=== PATIENT | female | born 1935 | race Caucasian/White ===

== ENCOUNTER 2018-11-01 19:18 | Inpatient (IN) | payer MEDICARE, OTHER ==
[~2018-11-01] VITALS: Ht 156.2 cm; Wt 55.8 kg
[~2018-11-01 19:18] MED LIST: ALPR0.25 PO; ASPI81TA50 PO; BUME1TAB21 PO; CARV6.2512 PO; FAMO1TAB3 PO; FURO-93 PO; LOPE2TAB12 PO; LORA10CA PO; LOSA25TA2 PO; OMEP20CA14 PO; ONDA4TAB10 PO; POTA10TA57 PO; POTA15TA9 PO; SPIR25TA5 PO
--- NOTE | 2018-11-01 19:28 | NUR ---
PT BIBA FOR SOB. PT HAS A HX OF CHF. PT WAS DISCHARDGED ON YESTERDAY FROM [facility] FOR THE SAME. PT HAS 4+ PITTING PEDAL EDEMA. PT ON CONT. MONITORS, VSS
[2018-11-01] MEDS ORDERED: SODIUM CHLORIDE FLUSH 10ML SYR IVF ONE (20:00)
[2018-11-01 20:18] LABS: BASOPHILS # (AUTO) 0.01 x10^3/uL (0-0.1); BASOPHILS % (AUTO) 0 % (0-1); EOSINOPHILS % (AUTO) 0 % (1-7); LYMPHOCYTES # (AUTO) 0.62 x10^3/uL (1-3.4); LYMPHOCYTES % (AUTO) 18 % (22-44); MD NO; MEAN CORPUSCULAR HEMOGLOBIN 33.1 pg (27.0-34.8); MEAN CORPUSCULAR HGB CONC 33.1 g/dL (32.4-35.8); MEAN CORPUSCULAR VOLUME 100.2 fL (80-100); MEAN PLATELET VOLUME 8.9 fL (7.4-10.4); MONOCYTES # (AUTO) 0.48 x10^3/uL (0.2-0.8); MONOCYTES % (AUTO) 14 % (2-9); NEUTROPHILS # (AUTO) 2.28 x10^3/uL (1.8-6.8); NEUTROPHILS % (AUTO) 67 % (42-75); PLATELET COUNT 163 x10^3/uL (130-400); RED BLOOD COUNT 3.75 x10^6/uL (3.82-5.3)
[2018-11-01 20:21] LABS: ALBUMIN 3.6 g/dL (3.4-5.0); ANION GAP 8 mmol/L (5-15); CALCIUM 8.5 mg/dL (8.5-10.1); CHLORIDE 101 mmol/L (98-107); CREATININE 1.16 mg/dL (0.55-1.02)
[2018-11-01 20:25] LABS: TROPONIN I 0.026 ng/mL (0.000-0.045)
--- NOTE | 2018-11-01 20:31 | NUR ---
RECEIVED REPORT FROM JUNE OLIVARES. PT RESTING IN BED AT THIS TIME, FAMILY AT BEDSIDE.
--- NOTE | 2018-11-01 20:55 | NUR ---
PT UP FOR RECHECK. ALL RESULTS BACK.
[2018-11-01] MEDS ORDERED: FUROSEMIDE 40 MG/4 ML IVPush ONE (21:30)
[2018-11-01] MEDS ORDERED: FUROSEMIDE 40 MG/4 ML ONE (21:44)
--- NOTE | 2018-11-01 21:53 | NUR ---
REPORT TO JEWEL OLIVARES
[2018-11-01] MEDS ORDERED: AZIT500T2 PO (22:05)
[2018-11-01] MEDS ORDERED: POLYETHYLENE GLYCOL 17 GM PACKET PO PRN (22:30)
[2018-11-01] MEDS ORDERED: hydrALAzine 20 MG/ML, 1ML IVPush PRN (22:30)
[2018-11-01] MEDS ORDERED: GUAIFENESIN/DM 200-20MG, 10ML UDC PO PRN (22:30)
[2018-11-01] MEDS ORDERED: ONDANSETRON 2MG/ML, 2ML IVPush PRN (22:30)
[2018-11-01 22:33] VITALS: BP 137/77
[2018-11-01] MEDS: CARVEDILOL 6.25 MG TABLET PO SCH (23:25)
[2018-11-02] MEDS ORDERED: ALBUTEROL SULFATE 2.5 MG/3 ML NPPB SCH (00:30)
[2018-11-02 01:59] VITALS: BP 130/86
[2018-11-02] MEDS: ALBUTEROL SULFATE 2.5 MG/3 ML NPPB SCH ×4 (02:20→21:27)
[2018-11-02 05:11] VITALS: BP 136/82
[2018-11-02] MEDS: CARVEDILOL 6.25 MG TABLET PO SCH ×2 (05:13→17:34)
[2018-11-02] MEDS: ASPIRIN 81 MG TABLET EC PO SCH (05:13)
[2018-11-02 06:13] LABS: BASOPHILS % (AUTO) 0 % (0-1); EOSINOPHILS % (AUTO) 0 % (1-7); LYMPHOCYTES # (AUTO) 0.77 x10^3/uL (1-3.4); LYMPHOCYTES % (AUTO) 24 % (22-44); MD NO; MEAN CORPUSCULAR HEMOGLOBIN 32.7 pg (27.0-34.8); MEAN CORPUSCULAR HGB CONC 32.8 g/dL (32.4-35.8); MEAN CORPUSCULAR VOLUME 99.5 fL (80-100); MEAN PLATELET VOLUME 8.9 fL (7.4-10.4); MONOCYTES # (AUTO) 0.49 x10^3/uL (0.2-0.8); MONOCYTES % (AUTO) 16 % (2-9); NEUTROPHILS # (AUTO) 1.89 x10^3/uL (1.8-6.8); NEUTROPHILS % (AUTO) 60 % (42-75); PLATELET COUNT 144 x10^3/uL (130-400); RED BLOOD COUNT 3.71 x10^6/uL (3.82-5.3); RED CELL DISTRIBUTION WIDTH 16.7 % (9.6-15.2)
[2018-11-02 06:20] LABS: ANION GAP 6 mmol/L (5-15); CALCIUM 8.2 mg/dL (8.5-10.1); CHLORIDE 100 mmol/L (98-107)
[2018-11-02 07:51] VITALS: BP 132/70
[2018-11-02] MEDS: ENOXAPARIN 30 MG/0.3 ML SQ SCH (09:00)
[2018-11-02] MEDS: LORATADINE 10 MG TABLET PO SCH (09:00)
[2018-11-02] MEDS: FUROSEMIDE 40 MG/4 ML IV SCH ×2 (09:22→17:32)
[2018-11-02] MEDS: SODIUM CHLORIDE FLUSH 10ML SYR IVF SCH ×3 (09:23→21:00)
[2018-11-02] MEDS: POTASSIUM CHLORIDE 20 MEQ TAB.ER.PRT PO SCH (09:33)
[2018-11-02 09:37] LABS: MICROSCOPIC AUTO
[2018-11-02 09:39] LABS: CULTURE INDICATED? NO
[2018-11-02] MEDS: ACETAMINOPHEN 325 MG TABLET PO PRN ×2 (09:39→20:59)
[2018-11-02 12:44] VITALS: BP 102/63
[2018-11-02 13:18] LABS: CLOSTRIDIUM DIFFICILE ANTIGEN NEGATIVE; CLOSTRIDIUM DIFFICILE TOXIN NEGATIVE (Negative)
[2018-11-02] MEDS ORDERED: DEXTROSE 50%, 50ML SYRINGE IVPush PRN (14:30)
[2018-11-02] MEDS ORDERED: DEXTROSE 4 GM TAB.CHEW PO PRN (14:30)
[2018-11-02] MEDS ORDERED: GLUCAGON 1 MG IM PRN (14:30)
[2018-11-02] MEDS: LOPERAMIDE 2 MG CAPSULE PO PRN (14:35)
[2018-11-02] MEDS: HEMORRHOIDAL OINT, 28 GM (PREP H) RC PRN (14:37)
[2018-11-02 17:34] VITALS: BP 117/73
[2018-11-02 18:53] VITALS: BP 123/78
[2018-11-03 00:30] VITALS: BP 129/80
[2018-11-03] MEDS: ALBUTEROL SULFATE 2.5 MG/3 ML NPPB SCH ×4 (03:00→19:00)
[2018-11-03 05:33] LABS: CHLORIDE 100 mmol/L (98-107)
[2018-11-03 05:39] LABS: ANION GAP 6 mmol/L (5-15); CREATININE 1.13 mg/dL (0.55-1.02)
[2018-11-03] MEDS: ASPIRIN 81 MG TABLET EC PO SCH (05:42)
[2018-11-03] MEDS: CARVEDILOL 6.25 MG TABLET PO SCH ×2 (05:42→17:48)
[2018-11-03 05:50] LABS: MEAN CORPUSCULAR HEMOGLOBIN 33.8 pg (27.0-34.8); MEAN CORPUSCULAR HGB CONC 34.2 g/dL (32.4-35.8); MEAN PLATELET VOLUME 8.6 fL (7.4-10.4); PLATELET COUNT 126 x10^3/uL (130-400); RED BLOOD COUNT 3.36 x10^6/uL (3.82-5.3); RED CELL DISTRIBUTION WIDTH 16.5 % (9.6-15.2)
[2018-11-03 06:03] LABS: BASOPHILS # (AUTO) 0.01 x10^3/uL (0-0.1); BASOPHILS % (AUTO) 0 % (0-1); EOSINOPHILS % (AUTO) 0 % (1-7); LYMPHOCYTES # (AUTO) 0.48 x10^3/uL (1-3.4); LYMPHOCYTES % (AUTO) 15 % (22-44); MD SCAN; MONOCYTES # (AUTO) 0.46 x10^3/uL (0.2-0.8); MONOCYTES % (AUTO) 15 % (2-9); NEUTROPHILS # (AUTO) 2.23 x10^3/uL (1.8-6.8); NEUTROPHILS % (AUTO) 70 % (42-75)
[2018-11-03] MEDS: ACETAMINOPHEN 325 MG TABLET PO PRN ×2 (07:18→16:06)
[2018-11-03 07:49] VITALS: BP 131/81
[2018-11-03] MEDS: FUROSEMIDE 40 MG/4 ML IV SCH ×2 (08:11→17:48)
[2018-11-03] MEDS: POTASSIUM CHLORIDE 20 MEQ TAB.ER.PRT PO SCH (08:13)
[2018-11-03] MEDS: ENOXAPARIN 30 MG/0.3 ML SQ SCH (08:14)
[2018-11-03] MEDS: SODIUM CHLORIDE FLUSH 10ML SYR IVF SCH ×4 (08:14→20:18)
[2018-11-03] MEDS: LORATADINE 10 MG TABLET PO SCH (08:19)
[2018-11-03] MEDS ORDERED: POTASSIUM CHLORIDE 20 MEQ TAB.ER.PRT PO ONE (09:00)
[2018-11-03] MEDS: HEMORRHOIDAL OINT, 28 GM (PREP H) RC PRN (13:21)
[2018-11-03 14:39] VITALS: BP 123/81
[2018-11-03] MEDS ORDERED: GABAPENTIN 100 MG CAPSULE PO PRN (16:30)
[2018-11-03] MEDS ORDERED: PHARMACY MAY ADJ FOR RENAL FX MC PRN (16:30)
[2018-11-03] MEDS ORDERED: METHOCARBAMOL 500 MG TABLET PO PRN (16:30)
[2018-11-03 17:50] VITALS: BP 119/77
[2018-11-03] MEDS ORDERED: CARVEDILOL 12.5 MG TABLET PO SCH (18:00)
[2018-11-03 19:30] VITALS: BP 120/77
[2018-11-04] MEDS: ACETAMINOPHEN 325 MG TABLET PO PRN ×2 (01:53→22:25)
[2018-11-04 02:03] VITALS: BP 126/76
[2018-11-04] MEDS: ALBUTEROL SULFATE 2.5 MG/3 ML NPPB SCH ×4 (03:00→19:44)
[2018-11-04] MEDS: ASPIRIN 81 MG TABLET EC PO SCH (06:05)
[2018-11-04] MEDS: CARVEDILOL 6.25 MG TABLET PO SCH ×2 (06:05→17:10)
[2018-11-04 06:09] LABS: ANION GAP 7 mmol/L (5-15); CALCIUM 8.2 mg/dL (8.5-10.1); CHLORIDE 98 mmol/L (98-107)
[2018-11-04 06:11] LABS: CREATININE 1.08 mg/dL (0.55-1.02)
[2018-11-04 06:13] LABS: BASOPHILS # (AUTO) 0.01 x10^3/uL (0-0.1); BASOPHILS % (AUTO) 0 % (0-1); EOSINOPHILS % (AUTO) 0 % (1-7); LYMPHOCYTES # (AUTO) 0.57 x10^3/uL (1-3.4); LYMPHOCYTES % (AUTO) 18 % (22-44); MD SCAN; MEAN CORPUSCULAR HEMOGLOBIN 32.7 pg (27.0-34.8); MEAN CORPUSCULAR HGB CONC 33.1 g/dL (32.4-35.8); MEAN PLATELET VOLUME 9.2 fL (7.4-10.4); MONOCYTES # (AUTO) 0.48 x10^3/uL (0.2-0.8); MONOCYTES % (AUTO) 15 % (2-9); NEUTROPHILS # (AUTO) 2.11 x10^3/uL (1.8-6.8); NEUTROPHILS % (AUTO) 67 % (42-75); PLATELET COUNT 130 x10^3/uL (130-400); RED BLOOD COUNT 3.68 x10^6/uL (3.82-5.3); RED CELL DISTRIBUTION WIDTH 16.7 % (9.6-15.2)
[2018-11-04] MEDS: POTASSIUM CHLORIDE 20 MEQ TAB.ER.PRT PO SCH (08:58)
[2018-11-04] MEDS: SODIUM CHLORIDE FLUSH 10ML SYR IVF SCH ×4 (08:58→20:58)
[2018-11-04] MEDS: FUROSEMIDE 40 MG/4 ML IV SCH ×3 (08:58→20:57)
[2018-11-04] MEDS: ENOXAPARIN 30 MG/0.3 ML SQ SCH (08:59)
[2018-11-04] MEDS: LORATADINE 10 MG TABLET PO SCH (08:59)
[2018-11-04 09:52] VITALS: BP 113/72
[2018-11-04 13:10] VITALS: BP 117/71
[2018-11-04] MEDS: LOPERAMIDE 2 MG CAPSULE PO PRN (14:41)
[2018-11-04 19:23] VITALS: BP 120/77
[2018-11-05 01:55] VITALS: BP 118/70
[2018-11-05] MEDS: ALBUTEROL SULFATE 2.5 MG/3 ML NPPB SCH ×2 (02:59→07:24)
[2018-11-05] MEDS: ASPIRIN 81 MG TABLET EC PO SCH (05:15)
[2018-11-05] MEDS: CARVEDILOL 6.25 MG TABLET PO SCH (05:16)
[2018-11-05 05:26] LABS: ANION GAP 7 mmol/L (5-15); CALCIUM 8.5 mg/dL (8.5-10.1); CHLORIDE 99 mmol/L (98-107)
[2018-11-05 05:27] LABS: CREATININE 0.92 mg/dL (0.55-1.02)
[2018-11-05 05:49] LABS: BASOPHILS # (AUTO) 0.01 x10^3/uL (0-0.1); BASOPHILS % (AUTO) 0 % (0-1); EOSINOPHILS % (AUTO) 0 % (1-7); LYMPHOCYTES # (AUTO) 0.65 x10^3/uL (1-3.4); LYMPHOCYTES % (AUTO) 20 % (22-44); MD SCAN; MEAN CORPUSCULAR HEMOGLOBIN 33.7 pg (27.0-34.8); MEAN CORPUSCULAR HGB CONC 33.7 g/dL (32.4-35.8); MEAN CORPUSCULAR VOLUME 99.8 fL (80-100); MEAN PLATELET VOLUME 9.1 fL (7.4-10.4); MONOCYTES # (AUTO) 0.39 x10^3/uL (0.2-0.8); MONOCYTES % (AUTO) 12 % (2-9); NEUTROPHILS # (AUTO) 2.19 x10^3/uL (1.8-6.8); NEUTROPHILS % (AUTO) 68 % (42-75); PLATELET COUNT 133 x10^3/uL (130-400); RED BLOOD COUNT 3.56 x10^6/uL (3.82-5.3); RED CELL DISTRIBUTION WIDTH 16.7 % (9.6-15.2)
[2018-11-05 07:20] VITALS: BP 132/72
[2018-11-05] MEDS ORDERED: FURO20TA3 PO (08:00)
[2018-11-05] MEDS: SODIUM CHLORIDE FLUSH 10ML SYR IVF SCH ×2 (09:00→10:36)
[2018-11-05] MEDS: LORATADINE 10 MG TABLET PO SCH (09:00)
[2018-11-05] MEDS: POTASSIUM CHLORIDE 20 MEQ TAB.ER.PRT PO SCH (09:00)
[2018-11-05] MEDS: ENOXAPARIN 30 MG/0.3 ML SQ SCH (09:00)
[2018-11-05] MEDS: FUROSEMIDE 40 MG/4 ML IV SCH (09:00)
[2018-11-05] MEDS: ACETAMINOPHEN 325 MG TABLET PO PRN (10:48)
== END 2018-11-05 14:30 | disposition hospice, home (50) | DRG 291 ==
LOC: ED 19:58 → EDIP 21:30 → 5SO 22:40
PROVIDERS: ADMIT Hospitalist; ATTEND Hospitalist
DX: I50.43 Acute on chronic combined systolic (congestive) and diastolic (congestive) heart failure (principal); J96.01 Acute respiratory failure with hypoxia; D61.818 Other pancytopenia; D68.69 Other thrombophilia; I47.2 Ventricular tachycardia; J98.11 Atelectasis; I11.0 Hypertensive heart disease with heart failure; D63.8 Anemia in other chronic diseases classified elsewhere; F41.9 Anxiety disorder, unspecified; H91.90 Unspecified hearing loss, unspecified ear; I27.20 Pulmonary hypertension, unspecified; I48.0 Paroxysmal atrial fibrillation; I48.2 Chronic atrial fibrillation; I77.819 Aortic ectasia, unspecified site; J44.9 Chronic obstructive pulmonary disease, unspecified; Z51.5 Encounter for palliative care; Z66 Do not resuscitate; Z79.82 Long term (current) use of aspirin; Z87.01 Personal history of pneumonia (recurrent); Z90.89 Acquired absence of other organs; Z79.899 Other long term (current) drug therapy; Z85.038 Personal history of other malignant neoplasm of large intestine; Z87.891 Personal history of nicotine dependence; Z90.710 Acquired absence of both cervix and uterus
CPT/HCPCS: 36415; 71045; 78582; 80048; 81001; 82040; 83735; 83880; 84100; 84443; 84484; 85025; 85379; 87324; 93005; 93306; 94640; 96374; G0378; J1940; J7613; A9540; A9558; C9898

== ENCOUNTER 2018-12-09 13:25 | Inpatient (IN) | payer MEDICARE, OTHER ==
[~2018-12-09] VITALS: Ht 152.4 cm; Wt 51.0 kg
[~2018-12-09 13:25] MED LIST changes: +AZIT500T2 PO; +FURO20TA3 PO
--- NOTE | 2018-12-09 14:08 | NUR ---
pt to xray
[2018-12-09 14:20] LABS: ALBUMIN 3.3 g/dL (3.4-5.0); ANION GAP 10 mmol/L (5-15); CHLORIDE 100 mmol/L (98-107); CREATININE 0.97 mg/dL (0.55-1.02)
[2018-12-09 14:24] LABS: CREATINE KINASE, TOTAL 78 U/L (26-192); TROPONIN I 0.026 ng/mL (0.000-0.045)
[2018-12-09 14:26] LABS: BASOPHILS # (AUTO) 0.01 x10^3/uL (0-0.1); BASOPHILS % (AUTO) 0 % (0-1); EOSINOPHILS % (AUTO) 0 % (1-7); LYMPHOCYTES % (AUTO) 16 % (22-44); MD NO; MEAN CORPUSCULAR HEMOGLOBIN 32.4 pg (27.0-34.8); MEAN CORPUSCULAR HGB CONC 32.4 g/dL (32.4-35.8); MEAN PLATELET VOLUME 8.5 fL (7.4-10.4); MONOCYTES # (AUTO) 0.52 x10^3/uL (0.2-0.8); MONOCYTES % (AUTO) 14 % (2-9); NEUTROPHILS # (AUTO) 2.69 x10^3/uL (1.8-6.8); NEUTROPHILS % (AUTO) 70 % (42-75); PLATELET COUNT 176 x10^3/uL (130-400); RED BLOOD COUNT 3.83 x10^6/uL (3.82-5.3); RED CELL DISTRIBUTION WIDTH 18.3 % (9.6-15.2)
[2018-12-09 14:40] LABS: CALCIUM 8.3 mg/dL (8.5-10.1)
[2018-12-09] MEDS ORDERED: POTASSIUM CHLORIDE 20 MEQ TAB.ER.PRT PO ONE (17:00)
[2018-12-09] MEDS ORDERED: ENOXAPARIN 40 MG/0.4 ML SQ SCH (17:00)
[2018-12-09] MEDS ORDERED: FUROSEMIDE 40 MG/4 ML IV ONE (17:00)
[2018-12-09] MEDS ORDERED: hydrALAzine 20 MG/ML, 1ML IVPush PRN (17:00)
[2018-12-09] MEDS ORDERED: LABETALOL 5MG/ML, 20ML IVPush PRN (17:00)
[2018-12-09] MEDS ORDERED: ACETAMINOPHEN 325 MG TABLET PO PRN (17:00)
--- NOTE | 2018-12-09 17:38 | NUR ---
attempted to call report of pt to ELISE Vizcaino. Per nursing desk, RN in iso room and will call back.
[2018-12-09 17:40] LABS: TROPONIN I 0.024 ng/mL (0.000-0.045)
--- NOTE | 2018-12-09 17:56 | NUR ---
report of pt to sandra Rios. all questions answered.
[2018-12-09 18:30] VITALS: BP 147/67
[2018-12-09] MEDS ORDERED: ALBUTEROL/IPRATROPIUM 2.5MG/0.5MG, 3 ML NPPB PRN (19:00)
[2018-12-09] MEDS: ALBUTEROL/IPRATROPIUM 2.5MG/0.5MG, 3 ML NPPB SCH (20:00)
[2018-12-09] MEDS ORDERED: BUMETANIDE 1 MG TABLET PO SCH (21:00)
[2018-12-09 22:45] VITALS: BP 126/85
[2018-12-09] MEDS: CARVEDILOL 6.25 MG TABLET PO SCH (22:49)
[2018-12-09 23:55] LABS: TROPONIN I 0.029 ng/mL (0.000-0.045)
[2018-12-10] MEDS: GUAIFENESIN ER 600 MG TABLET PO SCH ×2 (01:51→09:07)
[2018-12-10 02:35] VITALS: BP 124/74
[2018-12-10 05:22] LABS: ANION GAP 8 mmol/L (5-15); CALCIUM 7.6 mg/dL (8.5-10.1); CHLORIDE 102 mmol/L (98-107)
[2018-12-10 05:23] LABS: CREATININE 0.94 mg/dL (0.55-1.02)
[2018-12-10 05:38] VITALS: BP 123/82
[2018-12-10] MEDS: CARVEDILOL 6.25 MG TABLET PO SCH (05:42)
[2018-12-10 06:33] LABS: BASOPHILS # (AUTO) 0.01 x10^3/uL (0-0.1); BASOPHILS % (AUTO) 0 % (0-1); EOSINOPHILS % (AUTO) 0 % (1-7); LYMPHOCYTES # (AUTO) 0.45 x10^3/uL (1-3.4); LYMPHOCYTES % (AUTO) 15 % (22-44); MD SCAN; MEAN CORPUSCULAR HEMOGLOBIN 33.6 pg (27.0-34.8); MEAN CORPUSCULAR HGB CONC 33.6 g/dL (32.4-35.8); MEAN CORPUSCULAR VOLUME 99.8 fL (80-100); MEAN PLATELET VOLUME 8.6 fL (7.4-10.4); MONOCYTES # (AUTO) 0.45 x10^3/uL (0.2-0.8); MONOCYTES % (AUTO) 16 % (2-9); NEUTROPHILS # (AUTO) 2.01 x10^3/uL (1.8-6.8); NEUTROPHILS % (AUTO) 69 % (42-75); PLATELET COUNT 147 x10^3/uL (130-400); RED BLOOD COUNT 3.36 x10^6/uL (3.82-5.3); RED CELL DISTRIBUTION WIDTH 18.5 % (9.6-15.2)
[2018-12-10] MEDS: ALBUTEROL/IPRATROPIUM 2.5MG/0.5MG, 3 ML NPPB SCH ×2 (07:00→11:00)
[2018-12-10 08:00] VITALS: BP 129/80
[2018-12-10] MEDS: POTASSIUM CHLORIDE 20 MEQ TAB.ER.PRT PO ONE ×2 (08:00→09:07)
[2018-12-10] MEDS: ASPIRIN 81 MG TABLET EC PO SCH ×2 (09:00→09:07)
[2018-12-10] MEDS ORDERED: POTASSIUM CHLORIDE 20 MEQ TAB.ER.PRT PO SCH (09:00)
[2018-12-10] MEDS ORDERED: LORATADINE 10 MG TABLET PO SCH (09:00)
[2018-12-10] MEDS ORDERED: GUAIFENESIN ER 600 MG TABLET PO SCH (09:00)
[2018-12-10] MEDS ORDERED: POTASSIUM CHLORIDE 20 MEQ TAB.ER.PRT PO ONE (10:30)
[2018-12-10] MEDS ORDERED: POTASSIUM CHLORIDE 10 MEQ TABLET.ER ONE (11:01)
[2018-12-10] MEDS ORDERED: POTASSIUM CHLORIDE 10 MEQ TABLET.ER PO ONE (11:30)
[2018-12-10 13:30] LABS: CLOSTRIDIUM DIFFICILE ANTIGEN NEGATIVE; CLOSTRIDIUM DIFFICILE TOXIN NEGATIVE (Negative)
[2018-12-10 13:50] VITALS: BP 161/97
[2018-12-10] MEDS ORDERED: BUMETANIDE 0.25 MG/ML, 4ML IV ONE (14:00)
[2018-12-10] MEDS ORDERED: LORazepam 2 MG/ML, 1ML IVPush ONE (14:00)
[2018-12-10] MEDS ORDERED: FUROSEMIDE 40 MG/4 ML IV SCH (17:00)
[2018-12-10] MEDS ORDERED: BUMETANIDE 0.25 MG/ML, 4ML IV SCH (21:00)
== END 2018-12-10 15:45 | disposition expired | DRG 291 ==
LOC: ED 15:29 → EDIP 16:04 → 5SO 18:18
PROVIDERS: ADMIT Internal Medicine; ATTEND Internal Medicine
DX: I11.0 Hypertensive heart disease with heart failure (principal); J96.01 Acute respiratory failure with hypoxia; E44.1 Mild protein-calorie malnutrition; D68.69 Other thrombophilia; J98.11 Atelectasis; R18.8 Other ascites; I50.43 Acute on chronic combined systolic (congestive) and diastolic (congestive) heart failure; I48.0 Paroxysmal atrial fibrillation; I27.20 Pulmonary hypertension, unspecified; H91.90 Unspecified hearing loss, unspecified ear; D63.8 Anemia in other chronic diseases classified elsewhere; F41.9 Anxiety disorder, unspecified; E87.6 Hypokalemia; J44.9 Chronic obstructive pulmonary disease, unspecified; K57.90 Diverticulosis of intestine, part unspecified, without perforation or abscess without bleeding; M47.9 Spondylosis, unspecified; S20.211A Contusion of right front wall of thorax, initial encounter; W01.0XXA Fall on same level from slipping, tripping and stumbling without subsequent striking against object, initial encounter; Y92.002 Bathroom of unspecified non-institutional (private) residence as the place of occurrence of the external cause; Z85.038 Personal history of other malignant neoplasm of large intestine; Z87.891 Personal history of nicotine dependence; Z90.710 Acquired absence of both cervix and uterus; Z66 Do not resuscitate; R29.6 Repeated falls
CPT/HCPCS: 36415; 71045; 72050; 74176; 80048; 82040; 82550; 83735; 83880; 84484; 85025; 87324; 93005; 94640; 99285; G0378; J7620; J2060